=== PATIENT | female | born 1980 | race Caucasian/White ===

== ENCOUNTER → 2017-09-02 | Outpatient (CLI) | payer OTHER ==
[~2017-09-02] MED LIST: ALBU1AER9; ALLGDUNK; BCPILLS PO; FLNIN NAE; GLC500 PO; MULT-506 PO; OXYC-57 PO; QVRINH80; [UNRECOGNIZED DRUG - OTHER]
== END | disposition home or self-care (01) ==
LOC: C.PAPS 15:01
PROVIDERS: ATTEND Obstetrics & Gynecology
DX: Z12.4 Encounter for screening for malignant neoplasm of cervix (principal)

== ENCOUNTER 2017-10-20 17:58 | Emergency (ER) | payer BC, OTHER ==
[~2017-10-20] VITALS: Ht 162.6 cm; Wt 124.0 kg
[2017-10-20 18:05] VITALS: Ht 162.6 cm; Wt 124.0 kg
--- NOTE | 2017-10-20 19:17 | EMERGENCY ROOM VISIT NOTE ---
History Report prepared by Adriano: Kirt Garzon Under the Supervision of: Dr. Yannick Fine M.D. First contact with patient: 19:25 Chief Complaint: ABDOMINAL PAIN Stated Complaint: SEVERE UPPER ABDOMINAL PAIN, VOMITING, GALL STONE Nursing Triage Summary: patient to ED referred by primary Roman for assessment of gallbladder, states "they think I am passing a gallstone, strong family history of that. It came on suddenyl this morning, like someone twisting a knife in my stomach, vomiting all day" given toradol IM 60mg, phenergan 25mg IM in office History of Present Illness The patient is a 37 year old female who presents to the Emergency Room with complaints of stabbing upper abdominal lower chest pain that began 12 hours ago. She states she had a bite of chicken when the pain suddenly came on. The patient states that she had a similar episode of pain 1 weeks ago. She states that she was referred to come to the ED by her PCP Dr. Dawit Owens and that they think she is passing a gallstone due to her family history. She complains of vomiting, low grade fevers, and congestion. She states that she is unable to take deep breaths due to the pain. She denies cough. She was given Toradol IM 60mg and Phenergan 25mg IM in office and states that the pain has improved. She denies a history of blood clots. Source of History: patient Onset: 12 hours ago Position: chest (lower), abdomen (upper) Quality: stabbing Timing: constant Modifying Factors (Worsening): breathing Modifying Factors (Relieving): anti-emetics, other (Torradol) Associated Symptoms: + fevers (lowgrade), No chills, No cough Note: Patient complains of congestion. Review of Systems See HPI for pertinent positives and negatives. A total of ten systems were reviewed and were otherwise negative. Social History Smoking Status: Never Smoker Marital Status: in relationship Occupation Status: employed Current/Historical Medications Scheduled Ascorbic Acid (Vitamin C), 500 MG PO DAILY Biotin (Biotin), 1 CAP PO DAILY Famotidine (Pepcid), 20 MG PO BID Fexofenadine-Pseudoephedrine (Conchita-D 24 Hour Allergy), 1 TAB PO DAILY Levonorgestrel (Iud) (Mirena), INT UTER UD Multivitamins/Minerals (Mvi With Minerals), 1 TAB PO DAILY Ondasetron Odt (Zofran Odt), 4 MG SL Q6H Scheduled PRN Fluticasone Propionate (Nasal) (Flonase Allergy Relief), 2 SPRAYS VIRA BID PRN for Nasal Congestion Allergies Coded Allergies: No Known Allergies (Verified , 05/01/05) Physical Exam Vital Signs Date Time Temp Pulse Resp B/P (MAP) Pulse Ox O2 Delivery O2 Flow Rate FiO2 10/20/17 23:22 83 18 129/69 98 Room Air 10/20/17 21:34 36.8 10/20/17 19:56 90 10/20/17 19:49 73 21 149/84 96 Room Air 10/20/17 18:05 37.2 78 20 151/86 99 Room Air Physical Exam GENERAL: Awake, alert, uncomfortable appearing, in no distress HENT: Normocephalic, atraumatic. Dry mucous membranes. EYES: Normal conjunctiva. Sclera non-icteric. NECK: Supple. No nuchal rigidity. FROM. No JVD. RESPIRATORY: Clear to auscultation. CARDIAC: Regular rate, normal rhythm. Extremities warm and well perfused. Pulses equal. ABDOMEN: Soft, non-distended. Positive Moore's sign; mild epigastric tenderness. No peritoneal signs such as rebound or guarding. No masses. RECTAL: Deferred. MUSCULOSKELETAL: Chest examination reveals no tenderness. The back is symmetrical on inspection without obvious abnormality. There is no CVA tenderness to palpation. No joint edema. LOWER EXTREMITIES: Calves are equal size bilaterally and non-tender. No edema. No discoloration. NEURO: Normal sensorium. No sensory or motor deficits noted. SKIN: No rash or jaundice noted. Medical Decision & Procedures Laboratory Results 10/20/17 19:36 Red Blood Count 4.93, Mean Corpuscular Volume 87.2, Mean Corpuscular Hemoglobin 30.0, Mean Corpuscular Hemoglobin Concent 34.4, Mean Platelet Volume 12.0, Neutrophils (%) (Auto) 86.0, Lymphocytes (%) (Auto) 9.7, Monocytes (%) (Auto) 3.8, Eosinophils (%) (Auto) 0.1, Basophils (%) (Auto) 0.1, Neutrophils # (Auto) 10.06, Lymphocytes # (Auto) 1.14, Monocytes # (Auto) 0.45, Eosinophils # (Auto) 0.01, Basophils # (Auto) 0.01 10/20/17 19:36 Test 10/20/17 19:36 White Blood Count 11.71 K/uL (4.8-10.8) Red Blood Count 4.93 M/uL (4.2-5.4) Hemoglobin 14.8 g/dL (12.0-16.0) Hematocrit 43.0 % (37-47) Mean Corpuscular Volume 87.2 fL (80-100) Mean Corpuscular Hemoglobin 30.0 pg (25-34) Mean Corpuscular Hemoglobin Concent 34.4 g/dl (32-36) Platelet Count 184 K/uL (130-400) Mean Platelet Volume 12.0 fL (7.4-10.4) Neutrophils (%) (Auto) 86.0 % Lymphocytes (%) (Auto) 9.7 % Monocytes (%) (Auto) 3.8 % Eosinophils (%) (Auto) 0.1 % Basophils (%) (Auto) 0.1 % Neutrophils # (Auto) 10.06 K/uL (1.4-6.5) Lymphocytes # (Auto) 1.14 K/uL (1.2-3.4) Monocytes # (Auto) 0.45 K/uL (0.11-0.59) Eosinophils # (Auto) 0.01 K/uL (0-0.5) Basophils # (Auto) 0.01 K/uL (0-0.2) RDW Standard Deviation 41.6 fL (36.4-46.3) RDW Coefficient of Variation 13.0 % (11.5-14.5) Immature Granulocyte % (Auto) 0.3 % Immature Granulocyte # (Auto) 0.04 K/uL (0.00-0.02) Anion Gap 5.0 mmol/L (3-11) Est Creatinine Clear Calc Drug Dose 116.3 ml/min Estimated GFR () 99.3 Estimated GFR (Non- 85.7 BUN/Creatinine Ratio 13.0 (10-20) Calcium Level 9.2 mg/dl (8.5-10.1) Total Bilirubin 0.6 mg/dl (0.2-1) Direct Bilirubin 0.1 mg/dl (0-0.2) Aspartate Amino Transf (AST/SGOT) 14 U/L (15-37) Alanine Aminotransferase (ALT/SGPT) 30 U/L (12-78) Alkaline Phosphatase 68 U/L (45-117) Troponin I < 0.015 ng/ml (0-0.045) Total Protein 8.5 gm/dl (6.4-8.2) Albumin 4.2 gm/dl (3.4-5.0) Lipase 77 U/L (73-393) Laboratory results reviewed by me Medications Administered Medications (Trade) Dose Ordered Sig/Allie Route Start Time Stop Time Status Last Admin Dose Admin Sodium Chloride 1,000 ml @ 999 mls/hr Q1H1M STAT IV 10/20/17 19:37 10/20/17 20:37 DC 10/20/17 19:37 999 MLS/HR Fentanyl Citrate (Fentanyl Inj) 50 mcg NOW STAT IV 10/20/17 19:37 10/20/17 19:39 DC 10/20/17 20:08 50 MCG Famotidine (Pepcid 20mg Iv Push) 20 mg NOW STAT IV 10/20/17 21:41 10/20/17 21:42 DC 10/20/17 21:52 20 MG Miscellaneous Medication (Gi Cocktail) 24 ml NOW STAT PO 10/20/17 21:41 10/20/17 21:42 DC 10/20/17 21:41 24 ML Procedure Gallbladder Ultrasound: Gallstones in gallbladder neck. Moderately dilatated gallbladder. No pericholecystic fluid. No gross ductile dilatation. ED Course 1924: The patient was evaluated in room B2. A complete history and physical exam was performed. Medical Decision I reviewed the patient's past medical history, medications, and the nursing notes as described above. The patient's presentation and history were concerning for etiologies such as appendicitis, diverticulitis, PUD, biliary pathology, UTI, pancreatitis, obstruction, mesenteric ischemia, aortic pathology, infections, inflammatory bowel disease, renal colic, cardiac ischemia, aortic dissection, pulmonary embolism, pneumonia, pneumothorax, musculoskeletal, infections, pericarditis, myocarditis, esophageal rupture, gastrointestinal, as well as others were entertained. The patient is a 37-year-old woman who presents emergency Department with upper abdominal lower chest pain that began this morning with associated nausea per hpi. The patient was seen by her PCP today and sent her to emergency department concern for her gallbladder. On arrival patient's uncomfortable but in no acute distress, afebrile stable vital signs. The patient has a positive Moore sign on exam. Otherwise no peritoneal signs. Bedside ultrasound demonstrates gallstones within the gallbladder neck. Gallbladder is enlarged however no pericholecystic fluid and no gross ductal dilatation. WBC marginally elevated to 11. Otherwise, LFTs unremarkable with no evidence of obstruction. Patient was reassessed and still having right upper quadrant epigastric discomfort. CT scan done and again demonstrates gallstones with a 6 motor stone in the gallbladder neck but no other findings to suggest cholecystitis at this time. Patient now feeling improved after IV Pepcid and GI cocktail. Case was discussed with Dr. Moeller, gen-surg on-call agrees given otherwise reassuring workup can have the patient follow-up promptly outpatient. Findings and plan for follow-up reviewed with patient. Patient agreeable and d/c 'd per discharge instructions. Medication Reconcilliation Current Medication List: was personally reviewed by me Blood Pressure Screening Patient's blood pressure: Elevated blood pressure Blood pressure disposition: Elevated BP felt to be situational Consults Time Called: 23:00 Consulting Physician: Dr. Moeller Returned Call: 23:05 Impression Primary Impression: Symptomatic cholelithiasis Scribe Attestation The scribe's documentation has been prepared under my direction and personally reviewed by me in its entirety. I confirm that the note above accurately reflects all work, treatment, procedures, and medical decision making performed by me. Departure Information Dispostion Home / Self-Care Prescriptions Famotidine (PEPCID) 20 Mg Tab 20 MG PO BID for 7 Days, #14 TAB Prov: Yannick Fine M.D. 10/20/17 Ondasetron Odt (ZOFRAN ODT) 4 Mg Tab 4 MG SL Q6H for Nausea, #10 TAB Prov: Yannick Fine M.D. 10/20/17 Referrals Dawit Owens M.D. (PCP) Ronda Moeller MD Patient Instructions ED Gallstone W Biliary Colic, [facility] Additional Instructions Please follow up with general surgery, Dr. Moeller, @ [phone] for re-evaluation. Your symptoms are mostly likely due to your gallstones. Otherwise, your exam, lab results, ultrasound, and CT scan did not show signs of an emergent condition at this time. Of note, your CT also demonstrated incidental nodules (see report below) that should be monitored with repeat CT scan in 6 months that can be ordered by your primary doctor. Avoid high-fat foods. Acetaminophen for pain as needed. Pepcid for acid reduction for possible associated gastritis. Zofran as needed for nausea. Drink plenty of fluids to ensure hydration. Return to the emergency department for worsening symptoms as described in the accompanying instructions. ABDOMEN AND PELVIS CT WITH IV CONTRAST CT DOSE: 1633.62 mGy.cm HISTORY: Right upper quadrant and epigastric pain. Nausea. Vomiting. TECHNIQUE: Multiaxial CT images of the abdomen and pelvis were performed following the use of intravenous contrast. A dose lowering technique was utilized adhering to the principles of ALARA. COMPARISON STUDY: Abdominal ultrasound 10/20/2017. FINDINGS: A 6 mm nodule within the right middle lobe. A 5 mm subpleural nodule within the right lower lobe on image 35. There are a few subpleural nodules within the left lower lobe with the largest measuring 6 mm. No pneumoperitoneum. No pneumatosis. No fractures within the visualized osseous structures. Multiple small stones within the gallbladder. There is a 6 mm stone at the gallbladder neck. Normal caliber common bile duct. No significant gallbladder wall thickening. The liver, spleen, adrenal glands, and pancreas are unremarkable. Normal kidneys. No hydronephrosis. No retroperitoneal lymphadenopathy. There is a cluster of small nodules seen within the left retroperitoneal fat on images 257 through 296. The largest nodule measures 12 mm. These are nonspecific but could represent small accessory spleens. An intrauterine device appears be in good position. The ovaries are unremarkable. The bladder is not well-distended but appears to be within normal limits. A few colonic diverticula. No bowel wall thickening or obstruction. Normal appendix. IMPRESSION: 1. Multiple small gallstones. This includes a 6 mm stone at the gallbladder neck. No gallbladder wall thickening at this time. Clinical correlation recommended to assess for developing acute cholecystitis. 2. No bowel wall thickening or obstruction. 3. Normal appendix. 4. A few subcentimeter bilateral pulmonary nodules as described above measuring up to 6 mm. Please refer to the chart below for recommended follow-up. 5. A cluster of small nodules within the left retroperitoneal fat. These may represent small accessory spleens. Six-month abdomen and pelvis CT follow up is recommended to ensure stability. Please refer to below summary of Fleischner criteria recommendations for follow-up of incidental CT nodules (Asuncion Smith, Guidelines for management of small pulmonary nodules detected on CT scans: A statement from the Fleischner Society, Radiology 237: [phone].) SOLID NODULES Solitary nodule size: <6 mm * Low risk patients: no follow-up needed * high risk patients: optional CT at 12 months Solitary nodule size: 6-8 mm * Low risk patients: follow-up at 6-12 months, then consider further follow-up at 18-24 months * high risk patients: initial follow-up CT at 6-12 months and then at 18-24 months if no change Solitary nodule size: >8 mm * either low or high risk patients - consider follow-up CT at 3 months, and/or CT-PET, and/or biopsy Multiple nodules size: <6 mm * Low risk patients: no routine follow-up * high risk patients: optional CT at 12 months Multiple nodules size: 6-8 mm * Low risk patients: follow-up at 3-6 months, then consider further follow-up at 18-24 months * high risk patients: follow-up at 3-6 months, then at 18-24 months if no change Multiple nodules size: >8 mm * Low risk patients: follow-up at 3-6 months, then consider further follow-up at 18-24 months * high risk patients: follow-up at 3-6 months, then at 18-24 months if no change Note: newly detected indeterminate nodule in persons 35 years of age or older. * Low risk patients: minimal or absent history of smoking and/or other known risk factors * high risk patients: history of smoking or of other known risk factors (e.g. first degree relative with lung cancer, or exposure to asbestos, radon, uranium) * if a nodule up to 8 mm is partly solid or is ground glass further follow-up is required after 24 months to exclude possible slow growing adenocarcinoma (ADRI) SUBSOLID NODULES Solitary pure ground-glass nodule * nodule size <6 mm - no CT follow-up required * nodule size >=6 mm - follow-up CT at 6-12 months, then every 2 years until 5 years Solitary part-solid nodule * nodule size <6 mm - no CT follow-up required * nodule size >=6 mm - follow-up CT at 3-6 months. If unchanged, and solid component remains <6 mm, then annual follow-up for 5 years Multiple subsolid nodules * nodule size <6 mm - follow-up CT at 3-6 months, consider further follow-up at 2 and 4 years if stable * nodule size >=6 mm - follow-up CT at 3-6 months, subsequent management based on the most suspicious nodule(s)
[2017-10-20] MEDS ORDERED: FENTANYL CITRATE INJ 50 MCG/1 ML 2 ML VIAL IV STA (19:37)
[2017-10-20] MEDS ORDERED: SODIUM CHLORIDE 0.9% 1000ML 1,000 ML IV STA (19:37)
[2017-10-20 19:52] LABS: BASO % 0.1 %; BASO ABS # 0.01 K/uL (0-0.2); EOS % 0.1 %; EOS ABS # 0.01 K/uL (0-0.5); HEMOGLOBIN 14.8 g/dL (12.0-16.0); IG# 0.04 K/uL (0.00-0.02); LYMPH % 9.7 %; LYMPH ABS # 1.14 K/uL (1.2-3.4); MEAN CELL VOLUME 87.2 fL (80-100); MEAN CORPUSCULAR HGB CONC 34.4 g/dl (32-36); MONO % 3.8 %; MONO ABS # 0.45 K/uL (0.11-0.59); NEUT ABS # 10.06 K/uL (1.4-6.5); PLATELET COUNT 184 K/uL (130-400); RED CELL DISTRIBUTION WIDTH SD 41.6 fL (36.4-46.3); WHITE BLOOD COUNT 11.71 K/uL (4.8-10.8)
--- NOTE | 2017-10-20 20:07 | DIAGNOSTIC IMAGING REPORT ---
CHEST ONE VIEW PORTABLE HISTORY: Atypical chest pain. COMPARISON: Chest 02/15/2010. FINDINGS: The lungs are clear. Cardiac silhouette is top normal in size. No pleural effusions. No pneumothorax. IMPRESSION: No significant change compared to the prior study. No acute process. Electronically signed by: Paulo Henriquez M.D. 10/20/2017 8:05 PM Dictated Date/Time: 10/20/2017 8:03 PM
[2017-10-20 20:09] LABS: ALBUMIN 4.2 gm/dl (3.4-5.0); ALT/SGPT 30 U/L (12-78); AST/SGOT 14 U/L (15-37); BLOOD UREA NITROGEN 11 mg/dl (7-18); CALCIUM 9.2 mg/dl (8.5-10.1); CARBON DIOXIDE 27 mmol/L (21-32); CREATININE 0.87 mg/dl (0.60-1.20); GLUCOSE 101 mg/dl (70-99); LIPASE 77 U/L (73-393); POTASSIUM 3.9 mmol/L (3.5-5.1); SODIUM 136 mmol/L (136-145)
[2017-10-20 20:14] LABS: ALKALINE PHOSPHATASE 68 U/L (45-117); TOTAL PROTEIN 8.5 gm/dl (6.4-8.2)
[2017-10-20] MEDS ORDERED: MULT-513 PO (20:42)
[2017-10-20] MEDS ORDERED: FEXO1TAB58 PO (20:42)
[2017-10-20] MEDS ORDERED: LEVO1IUD2 INT UTER (20:42)
[2017-10-20] MEDS ORDERED: FLUT0.15 NAE (20:42)
[2017-10-20] MEDS ORDERED: ASCO-63 PO (20:42)
[2017-10-20] MEDS ORDERED: BIOT1CAP8 PO (20:42)
--- NOTE | 2017-10-20 21:11 | DIAGNOSTIC IMAGING REPORT ---
ABDOMINAL ULTRASOUND, RIGHT UPPER QUADRANT HISTORY: Upper abdominal pain. Gallstone.. COMPARISON: None. FINDINGS: Pancreas: The visualized pancreas demonstrates a normal echotexture. Liver: The liver is echogenic consistent with fatty change. Gallbladder: Multiple small gallstones. Gallbladder wall is top normal in thickness. CBD: 4 mm. Right kidney: No hydronephrosis. IMPRESSION: 1. Cholelithiasis. Gallbladder wall is top normal in thickness. 2. Hepatic steatosis. Electronically signed by: Paulo Henriquez M.D. 10/20/2017 9:09 PM Dictated Date/Time: 10/20/2017 9:08 PM
[2017-10-20 21:34] VITALS: TEMP 36.8
[2017-10-20] MEDS ORDERED: GI COCKTAIL PO STA (21:41)
[2017-10-20] MEDS ORDERED: FAMOTIDINE 20MG/5ML IV PUSH IV STA (21:41)
[2017-10-20] MEDS ORDERED: OPTIRAY 320 IV PRN (21:45)
[2017-10-20] MEDS ORDERED: LIDOCAINE HCL 2% VISC SOLN 20 ML UDC ONE (21:50)
[2017-10-20] MEDS ORDERED: ALUMINUM/MAGNESIUM SUSP 30 ML UDC ONE (21:50)
--- NOTE | 2017-10-20 22:50 | DIAGNOSTIC IMAGING REPORT ---
ABDOMEN AND PELVIS CT WITH IV CONTRAST CT DOSE: 1633.62 mGy.cm HISTORY: Right upper quadrant and epigastric pain. Nausea. Vomiting. TECHNIQUE: Multiaxial CT images of the abdomen and pelvis were performed following the use of intravenous contrast. A dose lowering technique was utilized adhering to the principles of ALARA. COMPARISON STUDY: Abdominal ultrasound 10/20/2017. FINDINGS: A 6 mm nodule within the right middle lobe. A 5 mm subpleural nodule within the right lower lobe on image 35. There are a few subpleural nodules within the left lower lobe with the largest measuring 6 mm. No pneumoperitoneum. No pneumatosis. No fractures within the visualized osseous structures. Multiple small stones within the gallbladder. There is a 6 mm stone at the gallbladder neck. Normal caliber common bile duct. No significant gallbladder wall thickening. The liver, spleen, adrenal glands, and pancreas are unremarkable. Normal kidneys. No hydronephrosis. No retroperitoneal lymphadenopathy. There is a cluster of small nodules seen within the left retroperitoneal fat on images 257 through 296. The largest nodule measures 12 mm. These are nonspecific but could represent small accessory spleens. An intrauterine device appears be in good position. The ovaries are unremarkable. The bladder is not well-distended but appears to be within normal limits. A few colonic diverticula. No bowel wall thickening or obstruction. Normal appendix. IMPRESSION: 1. Multiple small gallstones. This includes a 6 mm stone at the gallbladder neck. No gallbladder wall thickening at this time. Clinical correlation recommended to assess for developing acute cholecystitis. 2. No bowel wall thickening or obstruction. 3. Normal appendix. 4. A few subcentimeter bilateral pulmonary nodules as described above measuring up to 6 mm. Please refer to the chart below for recommended follow-up. 5. A cluster of small nodules within the left retroperitoneal fat. These may represent small accessory spleens. Six-month abdomen and pelvis CT follow up is recommended to ensure stability. Please refer to below summary of Fleischner criteria recommendations for follow-up of incidental CT nodules (Asuncion Smith, Guidelines for management of small pulmonary nodules detected on CT scans: A statement from the Fleischner Society, Radiology 237: [phone].) SOLID NODULES Solitary nodule size: <6 mm * Low risk patients: no follow-up needed * high risk patients: optional CT at 12 months Solitary nodule size: 6-8 mm * Low risk patients: follow-up at 6-12 months, then consider further follow-up at 18-24 months * high risk patients: initial follow-up CT at 6-12 months and then at 18-24 months if no change Solitary nodule size: >8 mm * either low or high risk patients - consider follow-up CT at 3 months, and/or CT-PET, and/or biopsy Multiple nodules size: <6 mm * Low risk patients: no routine follow-up * high risk patients: optional CT at 12 months Multiple nodules size: 6-8 mm * Low risk patients: follow-up at 3-6 months, then consider further follow-up at 18-24 months * high risk patients: follow-up at 3-6 months, then at 18-24 months if no change Multiple nodules size: >8 mm * Low risk patients: follow-up at 3-6 months, then consider further follow-up at 18-24 months * high risk patients: follow-up at 3-6 months, then at 18-24 months if no change Note: newly detected indeterminate nodule in persons 35 years of age or older. * Low risk patients: minimal or absent history of smoking and/or other known risk factors * high risk patients: history of smoking or of other known risk factors (e.g. first degree relative with lung cancer, or exposure to asbestos, radon, uranium) * if a nodule up to 8 mm is partly solid or is ground glass further follow-up is required after 24 months to exclude possible slow growing adenocarcinoma (ADRI) SUBSOLID NODULES Solitary pure ground-glass nodule * nodule size <6 mm - no CT follow-up required * nodule size >=6 mm - follow-up CT at 6-12 months, then every 2 years until 5 years Solitary part-solid nodule * nodule size <6 mm - no CT follow-up required * nodule size >=6 mm - follow-up CT at 3-6 months. If unchanged, and solid component remains <6 mm, then annual follow-up for 5 years Multiple subsolid nodules * nodule size <6 mm - follow-up CT at 3-6 months, consider further follow-up at 2 and 4 years if stable * nodule size >=6 mm - follow-up CT at 3-6 months, subsequent management based on the most suspicious nodule(s) Electronically signed by: Paulo Henriquez M.D. 10/20/2017 10:49 PM Dictated Date/Time: 10/20/2017 10:39 PM
[2017-10-20] MEDS ORDERED: ONDA4TAB10 SL (23:06)
[2017-10-20] MEDS ORDERED: FAMO20TA9 PO (23:06)
[2017-10-20 23:22] VITALS: BP 129/69; PULSE 83; O2SAT 98
== END 2017-10-20 23:35 | disposition home or self-care (01) ==
LOC: C.EDB 17:59
DX: K80.20 Calculus of gallbladder without cholecystitis without obstruction (principal)